=== PATIENT | female | born 1980 ===

== ENCOUNTER 2017-12-21 19:57 | Emergency (ER) | payer SELFPAY ==
[2017-12-21 20:09] VITALS: TEMP 98.9
--- NOTE | 2017-12-21 20:46 | C.PDOC ---
History Of Present Illness 37 year old female patient presents to the ER with c/o painful red skin on the abdominal area. Patient reports she popped a pimple x4 days ago and now there is redness and pain. Patient denies fever, nausea, vomiting, rash, numbness to area, abdominal pain, vision changes and ear pain. Time Seen by Provider: 12/21/17 20:24 Chief Complaint (Nursing): Abdominal Pain History Per: Patient History/Exam Limitations: no limitations Onset/Duration Of Symptoms: Days (x5) Current Symptoms Are (Timing): Still Present Quality Of Symptoms: Painful, Other (redness) Past Medical History Reviewed: Historical Data, Nursing Documentation, Vital Signs Vital Signs: Last Vital Signs Temp 98.9 F 12/21/17 20:05 Pulse 92 H 12/21/17 20:05 Resp 20 12/21/17 20:05 BP 148/83 12/21/17 20:05 Pulse Ox 99 12/21/17 20:05 Family History: States: No Known Family Hx - Social History Hx Alcohol Use: No Hx Substance Use: No - Immunization History Hx Tetanus Toxoid Vaccination: No Hx Influenza Vaccination: No Hx Pneumococcal Vaccination: No Review Of Systems Except As Marked, All Systems Reviewed And Found Negative. Constitutional: Negative for: Fever Eyes: Negative for: Vision Change ENT: Negative for: Ear Pain Gastrointestinal: Negative for: Nausea, Vomiting, Abdominal Pain Skin: Positive for: Other (pain and redness on skin of abdominal area). Negative for: Rash Neurological: Negative for: Numbness Physical Exam - Physical Exam Appears: Non-toxic, No Acute Distress Skin: Warm, Dry, No Rash, Other (15x8 cm area erythema and indurated; no fluctuance and drainage or purulent material; near umbilicus) Head: Atraumatic Eye(s): bilateral: Normal Inspection, EOMI Nose: Normal Oral Mucosa: Moist Chest: Symmetrical, No Deformity Cardiovascular: Rhythm Regular Respiratory: Normal Breath Sounds Gastrointestinal/Abdominal: Soft, No Tenderness Extremity: Normal ROM (x4) Neurological/Psych: Oriented x3, Normal Speech ED Course And Treatment - Laboratory Results Result Diagrams: 12/21/17 20:54 12/21/17 20:54 O2 Sat by Pulse Oximetry: 99 (RA) Pulse Ox Interpretation: Normal Medical Decision Making Medical Decision Making: Impression: red and painful skin on abdominal area Plans: -- chem lab -- blood work -- blood cx Leukocytosis noted, but will trial PO abx as patient is afebrile and appears nontoxic. Rx for keflex and bactrim written. Advised patient to return for worsening of cellulitis and for development of any new symptoms. Disposition - Disposition Disposition: HOME/ ROUTINE Disposition Time: 21:25 Condition: FAIR Additional Instructions: JOSELITO JACK, thank you for letting us take care of you today. Your provider was Misty Velarde MD and you were treated for FEVER. The emergency medical care you received today was directed at your acute symptoms. If you were prescribed any medication, please fill it and take as directed. It may take several days for your symptoms to resolve. Return to the Emergency Department if your symptoms worsen, do not improve, or if you have any other problems. Please contact your doctor or call one of the physicians/clinics you have been referred to that are listed on the Patient Visit Information form that is included in your discharge packet. Bring any paperwork you were given at discharge with you along with any medications you are taking to your follow up visit. Our treatment cannot replace ongoing medical care by a primary care provider outside of the emergency department. Thank you for allowing the [facility] team to be part of your care today. If you had an X-Ray or CT scan: A Radiologist will review the ED reading if any change in treatment is needed we will contact you. If you had a blood, urine, or wound culture: It will take several days for the results, if any change in treatment is needed we will contact you. If you had an STI test: It will take 48 hours for the results. Please call after 1 week if you have not heard back. Prescriptions: Cephalexin [Keflex] 500 mg PO QID #40 capsule Sulfamethoxazole/Trimethoprim [Bactrim DS 800 mg-160 mg] 1 tab PO BID #20 tab Instructions: Cellulitis (Skin Infection), Adult (DC) Forms: [employer] (Guamanian) Print Language: MOLDOVAN - Clinical Impression Clinical Impression: Cellulitis - Scribe Statement The provider has reviewed the documentation as recorded by the Scribe Antonella Ramos Provider Attestation: All medical record entries made by the Scribe were at my direction and p ersonally dictated by me. I have reviewed the chart and agree that the record accurately reflects my personal performance of the history, physical exam, medical decision making, and the department course for this patient. I have also personally directed, reviewed, and agree with the discharge instructions and disposition.
[2017-12-21 20:57] LABS: BASO % 0.2 % (0.0-2.0); EOS # 0.1 K/uL (0.0-0.7); EOS % 0.8 % (0.0-4.0); HEMOGLOBIN 12.3 g/dL (11.0-16.0); LYMPH # 2.6 K/uL (1.0-4.3); LYMPH % 18.8 % (20.0-40.0); MEAN CORPUSCULAR HEMOGLOBIN 28.4 pg (27.0-31.0); MEAN CORPUSCULAR HGB CONC 33.7 g/dL (33.0-37.0); MEAN PLATELET VOLUME 8.6 fL (7.2-11.7); MONO # 0.7 K/uL (0.0-0.8); NEUT # 10.5 K/uL (1.8-7.0); NEUT % 75.2 % (50.0-75.0); NRBC % 0.1 % (0.0-2.0); RBC 4.34 Mil/uL (3.80-5.20)
[2017-12-21 21:09] LABS: BLOOD UREA NITROGEN 11 mg/dL (7-17); CALCIUM 8.8 mg/dl (8.6-10.4); GFR NON-AFRICAN AMERICAN > 60
[2017-12-21 21:46] VITALS: BP 130/80; PULSE 85; RESP 14
[2017-12-21 22:30] VITALS: O2SAT 99
== END 2017-12-21 21:46 | disposition home or self-care (01) ==
LOC: C.ER 19:57
DX: L03.311 Cellulitis of abdominal wall (principal)